=== PATIENT | male | born 1960 | race Caucasian/White ===

== ENCOUNTER 2022-05-03 22:34 | Inpatient (IN) | payer MEDICAID ==
[~2022-05-03] VITALS: Ht 162.6 cm; Wt 75.7 kg
[2022-05-03] MEDS ORDERED: ONDANSETRON HCL 4MG/2ML INJ IV STA (23:02)
[2022-05-03 23:50] LABS: BASOPHILS % 2.2 % (0.0-2.0); EOSINOPHILS % 4.9 % (0.0-5.0); HEMATOCRIT. 35.8 % (42.0-52.0); HEMOGLOBIN. 11.9 g/dL (14.0-18.0); LYMPHOCYTES % 20.1 % (20.0-50.0); MEAN CORPUSCULAR HEMOGLOBIN 29.4 pg (28.0-32.0); MEAN CORPUSCULAR VOLUME 88.5 fL (80.0-94.0); MEAN PLATELET VOLUME 10.5 fl (7.4-10.4); MONOCYTES % 8.7 % (2.0-8.0); NEUTROPHILS % 64.1 % (40.0-76.0); PLATELET 115 x1000/uL (130-400); RED BLOOD CELL COUNT 4.05 mill/uL (4.7-6.1); RED CELL DISTRIBUTION WIDTH 16.9 % (11.6-14.6)
[2022-05-03 23:55] LABS: CHLORIDE 94 mEq/L (98-107)
[2022-05-04] VITALS (14 sets, daily range): BP systolic 127–170; BP diastolic 43–69
[2022-05-04] MEDS ORDERED: SODIUM POLYSTYRENE SULFONATE 15 G/60 ML BOT PO NR (00:45)
[2022-05-04] MEDS ORDERED: SODIUM BICARBONATE 8.4% 1 MEQ/ML 50ML SYR IV NR (00:45)
[2022-05-04] MEDS ORDERED: CALCIUM CHLORIDE 1GM/10ML SYR IV NR ×2 (00:45→03:15)
[2022-05-04] MEDS ORDERED: ALBUTEROL (0.083%) 2.5MG/3ML NEB HHN NR (00:45)
[2022-05-04] MEDS ORDERED: DEXTROSE 50% WATER 50ML SYRINGE IV NR ×2 (00:45→03:15)
[2022-05-04] MEDS ORDERED: INSULIN REGULAR (HUMULIN R) 300UNITS/3ML VIAL IV NR ×2 (00:45→03:15)
[2022-05-04] MEDS ORDERED: DEXTROSE 50% WATER 50ML SYRINGE IV ONE (03:45)
[2022-05-04 09:34] LABS: HEPATITIS B SURFACE ANTIGEN NEGATIVE
[2022-05-04] MEDS ORDERED: AMLO10TA80 PO (09:45)
[2022-05-04] MEDS ORDERED: DOXA8TAB81 PO (09:46)
[2022-05-04] MEDS ORDERED: LOSA50TA41 MT (09:46)
[2022-05-04] MEDS ORDERED: ONDANSETRON HCL 4MG/2ML INJ IV PRN (10:00)
[2022-05-04] MEDS: AMLODIPINE 10MG TABLET PO SCH (10:00)
[2022-05-04] MEDS ORDERED: HYDROCODONE/ACETAMINOPHEN 5/325MG TABLET PO PRN (10:00)
[2022-05-04] MEDS: SEVELAMER CARBONATE 800 MG TABLET PO SCH ×3 (10:00→17:18)
[2022-05-04] MEDS: LOSARTAN POTASSIUM 50 MG TABLET PO SCH ×2 (10:00→16:46)
[2022-05-04] MEDS ORDERED: ACETAMINOPHEN 325MG TABLET PO PRN (10:00)
[2022-05-04] MEDS ORDERED: MAGNESIUM/ALUMINUM HYDROXIDE/SIMETHICONE 30ML UDC PO PRN (10:00)
[2022-05-04] MEDS ORDERED: NALOXONE HCL 0.4MG/ML VIAL IV PRN (10:15)
[2022-05-04] MEDS: ENOXAPARIN 30MG/0.3ML SYR SUBCUT SCH (12:03)
[2022-05-04] MEDS ORDERED: DEXTROSE 50% WATER 50ML SYRINGE IV PRN (15:00)
[2022-05-04] MEDS ORDERED: *PATIENT'S OWN MEDICATION STORAGE XX SCH (15:15)
[2022-05-04] MEDS: CLONIDINE 0.1MG TABLET PO PRN (15:22)
[2022-05-04] MEDS ORDERED: PNEUMOCOCCAL 23-VAL P-SAC VAC 0.5 ML IM ONE (15:30)
[2022-05-04] MEDS: BLOOD SUGAR DIAGNOSTIC STRIP TEST SCH ×2 (16:45→20:02)
[2022-05-04] MEDS: INSULIN LISPRO 100 UNITS/ML SUBCUT SCH ×2 (16:46→20:02)
[2022-05-05] VITALS (15 sets, daily range): BP systolic 141–204; BP diastolic 51–78
[2022-05-05] MEDS ORDERED: IPRATROPIUM/ALBUTEROL 0.5-3(2.5)MG/3ML NEB HHN PRN (04:00)
[2022-05-05] MEDS: INSULIN LISPRO 100 UNITS/ML SUBCUT SCH ×4 (06:29→20:11)
[2022-05-05] MEDS: BLOOD SUGAR DIAGNOSTIC STRIP TEST SCH ×4 (06:29→20:11)
[2022-05-05] MEDS: OMEPRAZOLE 20MG CAPSULE EXTENDED RELEASE PO SCH (06:29)
[2022-05-05 07:44] LABS: BASOPHILS % 0.5 % (0.0-2.0); EOSINOPHILS % 0.7 % (0.0-5.0); HEMATOCRIT. 32.7 % (42.0-52.0); HEMOGLOBIN. 10.8 g/dL (14.0-18.0); MEAN CORPUSCULAR HEMOGLOBIN 29.6 pg (28.0-32.0); MEAN CORPUSCULAR VOLUME 89.4 fL (80.0-94.0); MEAN PLATELET VOLUME 11.2 fl (7.4-10.4); MONOCYTES % 7.7 % (2.0-8.0); NEUTROPHILS % 83.1 % (40.0-76.0); PLATELET 95 x1000/uL (130-400); RED BLOOD CELL COUNT 3.66 mill/uL (4.7-6.1)
[2022-05-05] MEDS ORDERED: CEPHALEXIN 250MG CAPSULE PO NR (07:49)
[2022-05-05] MEDS: SEVELAMER CARBONATE 800 MG TABLET PO SCH ×3 (08:15→17:14)
[2022-05-05] MEDS: AMLODIPINE 10MG TABLET PO SCH (08:16)
[2022-05-05] MEDS: LOSARTAN POTASSIUM 50 MG TABLET PO SCH ×2 (08:16→17:14)
[2022-05-05 10:36] LABS: CHLORIDE 97 mEq/L (98-107)
[2022-05-05 11:04] LABS: HDL CHOLESTEROL 48 mg/dL (40-59); LDL CHOLESTEROL 55 mg/dL (5-100); PHOSPHORUS 5.1 mg/dL (2.5-4.9); T4 FREE 1.71 ng/dL (0.76-1.46)
[2022-05-05] MEDS: ENOXAPARIN 30MG/0.3ML SYR SUBCUT SCH (11:29)
[2022-05-05] MEDS: CEFTRIAXONE 1,000 MG in DEXTROSE 5% WATER 50 ML IV SCH (15:36)
[2022-05-05 18:41] LABS: BG BASE EXCESS -3.5 mmol/L (-2.0-2.0); BG CARBOXYHEMOGLOBIN 1.2 % (0.5-1.5); BG DEOXYHEMOGLOBIN 22.6 % (0.0-5.0); BG FRACTION INSPIRED OXYGEN 21; BG HCO3 ACT 21.3 mmol/L (22.0-26.0); BG METHEMOGLOBIN 0.3 % (0.0-1.5); BG OXYGEN SATURATION 77.1 % (92.0-98.5); BG OXYHEMOGLOBIN 75.9 % (94.0-97.0); BG PCO2 37.1 mmHg (35.0-45.0); BG PH 7.376 (7.350-7.450); BG SAMPLE SITE RIGHT RADIAL; BG TOTAL HEMOGLOBIN 10.9 g/dL (12.0-18.0); BG VENT MODE ROOM AIR
[2022-05-05] MEDS: CLONIDINE 0.1MG TABLET PO PRN (22:42)
[2022-05-06] VITALS: BP 179/58
[2022-05-06 04:00] VITALS: BP 178/65
[2022-05-06] MEDS: CLONIDINE 0.1MG TABLET PO PRN (05:00)
[2022-05-06] MEDS: OMEPRAZOLE 20MG CAPSULE EXTENDED RELEASE PO SCH (06:11)
[2022-05-06] MEDS: BLOOD SUGAR DIAGNOSTIC STRIP TEST SCH ×4 (06:11→21:00)
[2022-05-06] MEDS: INSULIN LISPRO 100 UNITS/ML SUBCUT SCH ×4 (06:11→21:00)
[2022-05-06 07:45] VITALS: BP 180/57
[2022-05-06 07:55] LABS: BASOPHILS % 1.1 % (0.0-2.0); EOSINOPHILS % 1.9 % (0.0-5.0); HEMOGLOBIN. 10.6 g/dL (14.0-18.0); LYMPHOCYTES % 8.4 % (20.0-50.0); MEAN CORPUSCULAR HEMOGLOBIN 29.3 pg (28.0-32.0); MEAN CORPUSCULAR VOLUME 88.3 fL (80.0-94.0); MEAN PLATELET VOLUME 11.2 fl (7.4-10.4); MONOCYTES % 10.9 % (2.0-8.0); NEUTROPHILS % 77.7 % (40.0-76.0); PLATELET 107 x1000/uL (130-400); RED BLOOD CELL COUNT 3.62 mill/uL (4.7-6.1); RED CELL DISTRIBUTION WIDTH 16.8 % (11.6-14.6)
[2022-05-06] MEDS: LOSARTAN POTASSIUM 50 MG TABLET PO SCH ×2 (08:07→16:46)
[2022-05-06] MEDS: SEVELAMER CARBONATE 800 MG TABLET PO SCH ×3 (08:07→17:29)
[2022-05-06] MEDS: AMLODIPINE 10MG TABLET PO SCH (08:07)
[2022-05-06 08:35] LABS: PHOSPHORUS 4.3 mg/dL (2.5-4.9)
[2022-05-06] MEDS ORDERED: SODIUM POLYSTYRENE SULFONATE 15 G/60 ML BOT PO ONE (10:45)
[2022-05-06] MEDS: ENOXAPARIN 30MG/0.3ML SYR SUBCUT SCH (11:32)
[2022-05-06 12:00] VITALS: BP 181/65
[2022-05-06] MEDS: HYDRALAZINE HCL 25MG TABLET PO SCH ×2 (13:16→21:14)
[2022-05-06] MEDS: CEFTRIAXONE 1,000 MG in DEXTROSE 5% WATER 50 ML IV SCH (15:33)
[2022-05-06 16:00] VITALS: BP 157/57
[2022-05-06 20:00] VITALS: BP 149/74
[2022-05-07] VITALS: BP 172/56
[2022-05-07] MEDS: CLONIDINE 0.1MG TABLET PO PRN ×2 (00:27→16:43)
[2022-05-07 04:00] VITALS: BP 165/47
[2022-05-07] MEDS: INSULIN LISPRO 100 UNITS/ML SUBCUT SCH ×4 (05:57→21:02)
[2022-05-07] MEDS: HYDRALAZINE HCL 25MG TABLET PO SCH ×3 (05:57→21:05)
[2022-05-07] MEDS: BLOOD SUGAR DIAGNOSTIC STRIP TEST SCH ×4 (05:57→20:36)
[2022-05-07] MEDS: OMEPRAZOLE 20MG CAPSULE EXTENDED RELEASE PO SCH (05:57)
[2022-05-07 07:41] LABS: BASOPHILS % 1.2 % (0.0-2.0); EOSINOPHILS % 4.6 % (0.0-5.0); HEMATOCRIT. 31.9 % (42.0-52.0); HEMOGLOBIN. 10.5 g/dL (14.0-18.0); LYMPHOCYTES % 14.3 % (20.0-50.0); MEAN CORPUSCULAR HEMOGLOBIN 29.3 pg (28.0-32.0); MEAN CORPUSCULAR VOLUME 89.3 fL (80.0-94.0); MEAN PLATELET VOLUME 10.7 fl (7.4-10.4); MONOCYTES % 10.2 % (2.0-8.0); NEUTROPHILS % 69.7 % (40.0-76.0); PLATELET 124 x1000/uL (130-400); RED BLOOD CELL COUNT 3.57 mill/uL (4.7-6.1); RED CELL DISTRIBUTION WIDTH 16.6 % (11.6-14.6)
[2022-05-07 07:50] VITALS: BP 167/58
[2022-05-07] MEDS: LOSARTAN POTASSIUM 50 MG TABLET PO SCH ×2 (08:09→16:43)
[2022-05-07] MEDS: AMLODIPINE 10MG TABLET PO SCH (08:09)
[2022-05-07] MEDS: SEVELAMER CARBONATE 800 MG TABLET PO SCH ×3 (08:10→17:15)
[2022-05-07] MEDS: ENOXAPARIN 30MG/0.3ML SYR SUBCUT SCH (11:48)
[2022-05-07 12:00] VITALS: BP 165/48
[2022-05-07] MEDS: CEFTRIAXONE 1,000 MG in DEXTROSE 5% WATER 50 ML IV SCH (14:16)
[2022-05-07 15:58] VITALS: BP 169/51
[2022-05-07 20:00] VITALS: BP 145/56
[2022-05-08] VITALS (14 sets, daily range): BP systolic 142–170; BP diastolic 46–88
[2022-05-08 05:03] LABS: HEMATOCRIT. 30.7 % (42.0-52.0); HEMOGLOBIN. 10.2 g/dL (14.0-18.0); LYMPHOCYTES % 15.1 % (20.0-50.0); MEAN CORPUSCULAR HEMOGLOBIN 29.8 pg (28.0-32.0); MEAN CORPUSCULAR VOLUME 89.6 fL (80.0-94.0); MEAN PLATELET VOLUME 10.5 fl (7.4-10.4); MONOCYTES % 10.1 % (2.0-8.0); NEUTROPHILS % 67.8 % (40.0-76.0); PLATELET 134 x1000/uL (130-400); RED BLOOD CELL COUNT 3.42 mill/uL (4.7-6.1)
[2022-05-08] MEDS: BLOOD SUGAR DIAGNOSTIC STRIP TEST SCH ×4 (05:12→21:42)
[2022-05-08] MEDS: HYDRALAZINE HCL 25MG TABLET PO SCH (05:24)
[2022-05-08] MEDS: INSULIN LISPRO 100 UNITS/ML SUBCUT SCH ×4 (05:25→21:47)
[2022-05-08] MEDS: OMEPRAZOLE 20MG CAPSULE EXTENDED RELEASE PO SCH (05:29)
[2022-05-08] MEDS: SEVELAMER CARBONATE 800 MG TABLET PO SCH ×4 (08:10→21:45)
[2022-05-08] MEDS: AMLODIPINE 10MG TABLET PO SCH (09:10)
[2022-05-08] MEDS: LOSARTAN POTASSIUM 50 MG TABLET PO SCH ×2 (09:11→16:44)
[2022-05-08] MEDS: HYDRALAZINE HCL 50MG TABLET PO SCH ×2 (11:13→12:23)
[2022-05-08] MEDS: ENOXAPARIN 30MG/0.3ML SYR SUBCUT SCH (12:24)
[2022-05-08 15:01] LABS: BG BASE EXCESS -2.4 mmol/L (-2.0-2.0); BG CARBOXYHEMOGLOBIN 0.5 % (0.5-1.5); BG DEOXYHEMOGLOBIN 3.2 % (0.0-5.0); BG FRACTION INSPIRED OXYGEN 21; BG HCO3 ACT 22.2 mmol/L (22.0-26.0); BG METHEMOGLOBIN 0.1 % (0.0-1.5); BG OXYGEN SATURATION 96.8 % (92.0-98.5); BG OXYHEMOGLOBIN 96.2 % (94.0-97.0); BG PCO2 37.5 mmHg (35.0-45.0); BG PO2 94.2 mmHg (75.0-100.0); BG SAMPLE SITE RIGHT BRACHIAL; BG TOTAL HEMOGLOBIN 11.2 g/dL (12.0-18.0); BG VENT MODE ROOM AIR
[2022-05-08] MEDS: CEFTRIAXONE 1,000 MG in DEXTROSE 5% WATER 50 ML IV SCH (16:45)
[2022-05-08] MEDS: DOXAZOSIN MESYLATE 4MG TABLET PO SCH (21:45)
[2022-05-09] VITALS (18 sets, daily range): BP systolic 148–186; BP diastolic 46–69
[2022-05-09] MEDS: HYDRALAZINE HCL 50MG TABLET PO SCH ×5 (00:14→18:08)
[2022-05-09] MEDS: CLONIDINE 0.1MG TABLET PO PRN (00:14)
[2022-05-09] MEDS ORDERED: HYDRALAZINE 20MG/ML VIAL IV NR (03:45)
[2022-05-09 05:48] LABS: HEPATITIS B SURFACE ANTIGEN NEGATIVE
[2022-05-09] MEDS: BLOOD SUGAR DIAGNOSTIC STRIP TEST SCH ×4 (06:23→21:00)
[2022-05-09] MEDS: INSULIN LISPRO 100 UNITS/ML SUBCUT SCH ×4 (06:23→21:00)
[2022-05-09] MEDS: OMEPRAZOLE 20MG CAPSULE EXTENDED RELEASE PO SCH (06:23)
[2022-05-09] MEDS: AMLODIPINE 10MG TABLET PO SCH (08:21)
[2022-05-09] MEDS: SEVELAMER CARBONATE 800 MG TABLET PO SCH ×3 (08:21→18:08)
[2022-05-09] MEDS: LOSARTAN POTASSIUM 50 MG TABLET PO SCH ×2 (08:21→18:08)
[2022-05-09] MEDS: CEFTRIAXONE 1,000 MG in DEXTROSE 5% WATER 50 ML IV SCH (14:28)
[2022-05-09] MEDS: ENOXAPARIN 30MG/0.3ML SYR SUBCUT SCH (14:28)
[2022-05-09] MEDS ORDERED: EPOETIN ALFA-EPBX 4,000 UNIT/ML VIAL SUBCUT SCH (21:00)
[2022-05-09] MEDS: DOXAZOSIN MESYLATE 4MG TABLET PO SCH (22:52)
[2022-05-10] VITALS: BP 186/62
[2022-05-10] MEDS: HYDRALAZINE HCL 50MG TABLET PO SCH ×3 (00:27→11:33)
[2022-05-10] MEDS: CLONIDINE 0.1MG TABLET PO PRN (02:58)
[2022-05-10 04:00] VITALS: BP 172/56
[2022-05-10 04:07] LABS: OVA & PARASITE EXAM Final report (.)
[2022-05-10 05:18] LABS: BASOPHILS % 1.6 % (0.0-2.0); EOSINOPHILS % 5.8 % (0.0-5.0); HEMATOCRIT. 32.3 % (42.0-52.0); MEAN CORPUSCULAR HEMOGLOBIN 30.2 pg (28.0-32.0); MEAN CORPUSCULAR VOLUME 88.7 fL (80.0-94.0); MONOCYTES % 9.6 % (2.0-8.0); PLATELET 181 x1000/uL (130-400); RED BLOOD CELL COUNT 3.64 mill/uL (4.7-6.1)
[2022-05-10] MEDS: OMEPRAZOLE 20MG CAPSULE EXTENDED RELEASE PO SCH (06:16)
[2022-05-10] MEDS: BLOOD SUGAR DIAGNOSTIC STRIP TEST SCH ×2 (06:16→11:36)
[2022-05-10] MEDS: INSULIN LISPRO 100 UNITS/ML SUBCUT SCH ×2 (06:17→12:22)
[2022-05-10 08:00] VITALS: BP 126/54
[2022-05-10] MEDS: AMLODIPINE 10MG TABLET PO SCH (08:50)
[2022-05-10] MEDS: LOSARTAN POTASSIUM 50 MG TABLET PO SCH (08:50)
[2022-05-10] MEDS: SEVELAMER CARBONATE 800 MG TABLET PO SCH ×2 (08:51→12:21)
[2022-05-10] MEDS: ENOXAPARIN 30MG/0.3ML SYR SUBCUT SCH (11:33)
[2022-05-10 12:00] VITALS: BP 159/51
[2022-05-10 12:37] LABS: PARTIAL THROMBOPLASTIN TIME 25.9 sec (23.4-31.0); PROTHROMBIN TIME 10.7 sec (9.6-11.0)
[2022-05-10 14:18] VITALS: BP 155/81
[2022-05-10] MEDS: CEFTRIAXONE 1,000 MG in DEXTROSE 5% WATER 50 ML IV SCH (14:41)
[2022-05-10 16:00] VITALS: BP 155/55
[2022-05-10] MEDS ORDERED: IOHEXOL-350 100 ML BOTTLE ONE (16:24)
== END 2022-05-10 16:30 | disposition home or self-care (01) | DRG 425 ==
LOC: EDBD 22:34 → ER 22:34 → 8WST 05-04 01:41 → EDBEDREQTM 05-04 01:45 → EDBEDREQ 05-04 01:45 → EDBEDREQSVC 05-04 04:36 → ENRESERV 05-04 04:37 → ER 05-04 06:23
PROVIDERS: ADMIT Internal Medicine; ATTEND Internal Medicine
PROC: 5A1D70Z Performance of Urinary Filtration, Intermittent, Less than 6 Hours Per Day (ICD-10-PCS; principal; 2022-05-04)
PROC: 5A1D70Z Performance of Urinary Filtration, Intermittent, Less than 6 Hours Per Day (ICD-10-PCS; 2022-05-05)
PROC: 5A1D70Z Performance of Urinary Filtration, Intermittent, Less than 6 Hours Per Day (ICD-10-PCS; 2022-05-08)
PROC: 5A1D70Z Performance of Urinary Filtration, Intermittent, Less than 6 Hours Per Day (ICD-10-PCS; 2022-05-09)
DX: E87.5 Hyperkalemia (principal); J96.01 Acute respiratory failure with hypoxia; D69.6 Thrombocytopenia, unspecified; E44.0 Moderate protein-calorie malnutrition; E10.649 Type 1 diabetes mellitus with hypoglycemia without coma; J18.9 Pneumonia, unspecified organism; I12.0 Hypertensive chronic kidney disease with stage 5 chronic kidney disease or end stage renal disease; D63.1 Anemia in chronic kidney disease; Z20.822 Contact with and (suspected) exposure to COVID-19; E87.1 Hypo-osmolality and hyponatremia; N18.6 End stage renal disease; E10.22 Type 1 diabetes mellitus with diabetic chronic kidney disease; J21.9 Acute bronchiolitis, unspecified; E87.70 Fluid overload, unspecified; Z91.15 Patient's noncompliance with renal dialysis; E10.65 Type 1 diabetes mellitus with hyperglycemia; Z79.4 Long term (current) use of insulin; Z89.512 Acquired absence of left leg below knee; Z99.2 Dependence on renal dialysis; Z99.3 Dependence on wheelchair; Z68.28 Body mass index [BMI] 28.0-28.9, adult
CPT/HCPCS: 36415; 36600; 71045; 71046; 74175; 76770; 80048; 80053; 80061; 80076; 82375; 82805; 82962; 83036; 83605; 83735; 83880; 84100; 84145; 84439; 84443; 84484; 85025; 86705; 86709; 86803; 86850; 86900; 87015; 87045; 87070; 87077; 87177; 87186; 87209; 87340; 87426; 87427; 87449; 89055; 90935; 93306; 93970; 93976; 94644; 97116; 97162; 97530; 99291; J0360; J0696; J1650; J1815; J2405; J3490; J7060; Q9967